=== PATIENT | male | born 1995 | race Caucasian/White ===

== ENCOUNTER 2017-10-28 12:53 | Emergency (ER) | payer BC ==
[2017-10-28] MEDS: HYDROcodone/APAP 5/325MG 1 TAB TABLET PO (13:47)
== END 2017-10-28 14:38 | disposition home or self-care (01) ==
LOC: ER 14:38
DX: S43.004A Unspecified dislocation of right shoulder joint, initial encounter (principal); Z88.1 Allergy status to other antibiotic agents; W17.89XA Other fall from one level to another, initial encounter; Y93.89 Activity, other specified; Y92.89 Other specified places as the place of occurrence of the external cause; Y99.8 Other external cause status
CPT/HCPCS: 73030; 99284